=== PATIENT | male | born 1975 | race Caucasian/White ===

== ENCOUNTER 2017-12-18 16:01 | Emergency (ER) | payer BC ==
[2017-12-18] MEDS ORDERED: TYLENOL 325 MG PO STA (16:37)
[2017-12-18] MEDS ORDERED: MOTRIN 600 MG PO ONE (16:38)
--- NOTE | 2017-12-18 16:50 | ERPHSYRPT ---
- History of Present Illness Time Seen by Provider: 12/18/17 16:15 Source: patient, family Exam Limitations: no limitations Patient Subjective Stated Complaint: Pt states "I have had a fever for two days , it was 104 temporal at home." Triage Nursing Assessment: Pt alert and oriented X 3, skin pwd. PT ambylates with an upright steady gait, able to speakin clear full sentences. no apparent respiratory distress. Physician History: 42 y/o white male presents with fever as high as 104 at home for 2 days. pt last used dayquil 6.5 hours ago. he has muscle aches and pains but no other sx. denies chills, denies sore throat, denies neck pain, denies ear pain, denies n/v /d, denies cough, denies cp, denies abd pain, pt denies dysuria and denies flank pain. pt states no other individuals he's come into contact with have similar sx. Timing/Duration: day(s) (2) Fever Severity: moderate Associated Symptoms: muscle aches, No abdominal pain, No chest pain, No confusion, No cough, No diaphoresis, No headache, No nausea/vomiting, No rash, No rhinorrhea, No shortness of breath, No sore throat, No stiff neck, No syncope , No weakness International travel in last 2 weeks: No Allergies/Adverse Reactions: lactose Adverse Reaction (Mild, Verified 12/18/17 16:14) intolerance Home Medications: No Reportable Medications [No Reported Medications] 12/18/17 [History] Hx Tetanus, Diphtheria Vaccination/Date Given: No Hx Influenza Vaccination/Date Given: No Hx Pneumococcal Vaccination/Date Given: No Immunizations Up to Date: Yes - Review of Systems Constitutional: Fever, No Chills, No Fatigue, No Lethargy, No Malaise, No Night Sweats, No Weakness Eyes: No Symptoms, No Discharge, No Eye Pain Ears, Nose, & Throat: No Symptoms, No Ear Pain, No Nose Pain, No Nose Congestion , No Nose Discharge, No Sinus Drainage, No Throat Pain Respiratory: No Symptoms, No Cough, No Dyspnea, No Dyspnea on Exertion (GARRISON), No Stridor, No Wheezing Cardiac: No No Symptoms, No Chest Pain, No Palpitations, No Syncope Abdominal/Gastrointestinal: No Symptoms, No Abdominal Pain, No Nausea, No Vomiting, No Diarrhea, No Constipation Genitourinary Symptoms: No Symptoms, No Dysuria, No Frequency, No Hematuria, No Flank Pain Musculoskeletal: Arthralgias, Myalgias Skin: No Symptoms Neurological: No Symptoms, No Dizziness, No Headache Psychological: No Symptoms Endocrine: No Symptoms Hematologic/Lymphatic: No Symptoms Immunological/Allergic: No Symptoms All Other Systems: Reviewed and Negative - Past Medical History Pertinent Past Medical History: No Neurological History: No Pertinent History ENT History: No Pertinent History Cardiac History: No Pertinent History Respiratory History: No Pertinent History Endocrine Medical History: No Pertinent History Musculoskeletal History: No Pertinent History GI Medical History: No Pertinent History History: No Pertinent History Psycho-Social History: No Pertinent History Male Reproductive Disorders: No Pertinent History - Past Surgical History Past Surgical History: Yes Neuro Surgical History: No Pertinent History Cardiac: No Pertinent History Respiratory: No Pertinent History Gastrointestinal: No Pertinent History Genitourinary: No Pertinent History Musculoskeletal: No Pertinent History Male Surgical History: No Pertinent History Other Surgical History: right knee - Social History Smoking Status: Former smoker Exposure to second hand smoke: No Drug Use: none Patient Lives Alone: No - Nursing Vital Signs Nursing Vital Signs: Initial Vital Signs Temperature 100.7 F 12/18/17 16:09 Pulse Rate 84 12/18/17 16:09 Respiratory Rate 18 12/18/17 16:09 Blood Pressure 146/84 12/18/17 16:09 O2 Sat by Pulse Oximetry 98 12/18/17 16:09 Pain Scale Pain Intensity 4 - Physical Exam General Appearance: no apparent distress, alert, anxiety Eye Exam: PERRL/EOMI, eyes nml inspection ENT Exam: normal ENT inspection, no apparent trauma, hearing grossly normal, TMs normal, pharynx normal, No nasal congestion, No nasal drainage Neck Exam: normal inspection, non-tender, supple, full range of motion, trachea midline, No lymphadenopathy (R), No lymphadenopathy (L), No stiff neck Respiratory Exam: normal breath sounds, chest non-tender, lungs clear, no respiratory distress, no accessory muscle use, No decreased breath sounds, No accessory muscle use, No stridor, No wheezing Cardiovascular/Chest Exam: normal heart sounds, regular rate/rhythm, murmur Gastrointestinal/Abdominal Exam: soft, non tender, no distention, no mass, no guarding, no ecchymosis, no organomegaly, normal bowel sounds Rectal Exam: not done Extremity Exam: non-tender, normal range of motion, normal inspection, normal capillary refill Neurologic Exam: alert, oriented x 3, cooperative, 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, normal mood/affect, nml cerebellar function, nml station & gait Skin Exam: normal color, warm, dry Lymphatic: No adenopathy SpO2 Interpretation: normal SpO2: 98 Oxygen Delivery: Room Air - Course Nursing assessment & vital signs reviewed: Yes Ordered Tests: Active Orders 24 hr Category Date Time Status IV Insertion STAT Care 12/18/17 17:59 Active BLOOD CULTURE Stat Lab 12/18/17 18:05 Received BMP Stat Lab 12/18/17 17:55 Completed CBC W DIFF Stat Lab 12/18/17 17:55 Completed Lactic Acid Stat Lab 12/18/17 17:48 Completed White Screen Stat Lab 12/18/17 18:05 Received UA W/RFX UR CULTURE Stat Lab 12/18/17 19:00 Completed Medication Summary Discontinued Medications Generic Name Dose Route Start Last Admin Trade Name Severoq PRN Reason Stop Dose Admin Acetaminophen 650 mg 12/18/17 16:37 12/18/17 16:59 Tylenol 325 Mg PO 12/18/17 16:38 650 mg STAT STA Administration Acetaminophen Confirm 12/18/17 16:57 Tylenol 325 Mg Administered 12/18/17 16:58 Dose 650 mg .ROUTE .STK-MED ONE Sodium Chloride 1,000 mls @ 999 mls/hr 12/18/17 17:48 12/18/17 18:59 Sodium Chloride 0.9% 1000 Ml IV 12/18/17 18:48 Infused .Q1H1M STA Infusion Sodium Chloride Confirm 12/18/17 17:54 Sodium Chloride 0.9% 1000 Ml Administered 12/18/17 17:55 Dose 1,000 mls @ ud .ROUTE .STK-MED ONE Ibuprofen 600 mg 12/18/17 16:38 12/18/17 16:58 Motrin 600 Mg PO 12/18/17 16:39 600 mg STAT ONE Administration Ibuprofen Confirm 12/18/17 16:57 Motrin 600 Mg Administered 12/18/17 16:58 Dose 600 mg .ROUTE .STK-MED ONE Lab/Rad Data: Laboratory Result Diagrams 12/18/17 17:55 12/18/17 17:55 Laboratory Results 12/18/17 12/18/17 12/18/17 Range/Units 19:00 17:55 17:55 WBC 10.7 H (4.0-10.5) K/mm3 RBC 5.33 (4.1-5.6) M/mm3 Hgb 16.7 (12.5-18.0) gm/dl Hct 47.6 (42-50) % MCV 89.3 (78-100) fl MCH 31.3 (26-32) pg MCHC 35.1 (32-36) g/dl RDW 11.8 (11.5-14.0) % Plt Count 214 (150-450) K/mm3 MPV 9.6 H (6-9.5) fl Gran % 81.7 H (36.0-66.0) % Eos # (Auto) 0 (0-0.5) Absolute Lymphs (auto) 0.77 L (1.0-4.6) Absolute Monos (auto) 1.17 (0.0-1.3) Lymphocytes % 7.2 L (24.0-44.0) % Monocytes % 10.9 (0.0-12.0) % Eosinophils % 0.0 (0.00-5.0) % Basophils % 0.2 (0.0-0.4) % Absolute Granulocytes 8.77 H (1.4-6.9) Basophils # 0.02 (0-0.4) Sodium 137 (137-145) mmol/L Potassium 3.8 (3.5-5.1) mmol/L Chloride 96 L (98-107) mmol/L Carbon Dioxide 30 (22-30) mmol/L Anion Gap 15.2 H (5-15) MEQ/L BUN 14 (9-20) mg/dL Creatinine 0.88 (0.66-1.25) mg/dL Estimated GFR > 60.0 ML/MIN Glucose 103 (74-106) mg/dL Lactic Acid (0.4-2.0) Calcium 9.3 (8.4-10.2) mg/dL Ur Collection Type VOID Urine Color YELLOW (YELLOW) Urine Appearance CLEAR (CLEAR) Urine pH 6.0 (5-6) Ur Specific [place] 1.010 (1.005-1.025) Urine Protein NEGATIVE (Negative) Urine Ketones MODERATE (NEGATIVE) Urine Blood NEGATIVE (0-5) Jamie/ul Urine Nitrite NEGATIVE (NEGATIVE) Urine Bilirubin NEGATIVE (NEGATIVE) Urine Urobilinogen NORMAL (0-1) mg/dL Ur Leukocyte Esterase NEGATIVE (NEGATIVE) Urine Culture Reflexed NO (NO) Urine Glucose NEGATIVE (NEGATIVE) mg/dL Influenza Type A Ag (NEGATIVE) Influenza Type B Ag (NEGATIVE) RSV (PCR) (Negative) Specimen Received 12/18/17 1900 12/18/17 12/18/17 Range/Units 17:48 17:00 WBC (4.0-10.5) K/mm3 RBC (4.1-5.6) M/mm3 Hgb (12.5-18.0) gm/dl Hct (42-50) % MCV (78-100) fl MCH (26-32) pg MCHC (32-36) g/dl RDW (11.5-14.0) % Plt Count (150-450) K/mm3 MPV (6-9.5) fl Gran % (36.0-66.0) % Eos # (Auto) (0-0.5) Absolute Lymphs (auto) (1.0-4.6) Absolute Monos (auto) (0.0-1.3) Lymphocytes % (24.0-44.0) % Monocytes % (0.0-12.0) % Eosinophils % (0.00-5.0) % Basophils % (0.0-0.4) % Absolute Granulocytes (1.4-6.9) Basophils # (0-0.4) Sodium (137-145) mmol/L Potassium (3.5-5.1) mmol/L Chloride (98-107) mmol/L Carbon Dioxide (22-30) mmol/L Anion Gap (5-15) MEQ/L BUN (9-20) mg/dL Creatinine (0.66-1.25) mg/dL Estimated GFR ML/MIN Glucose (74-106) mg/dL Lactic Acid 0.9 (0.4-2.0) Calcium (8.4-10.2) mg/dL Ur Collection Type Urine Color (YELLOW) Urine Appearance (CLEAR) Urine pH (5-6) Ur Specific [place] (1.005-1.025) Urine Protein (Negative) Urine Ketones (NEGATIVE) Urine Blood (0-5) Jamie/ul Urine Nitrite (NEGATIVE) Urine Bilirubin (NEGATIVE) Urine Urobilinogen (0-1) mg/dL Ur Leukocyte Esterase (NEGATIVE) Urine Culture Reflexed (NO) Urine Glucose (NEGATIVE) mg/dL Influenza Type A Ag NEGATIVE (NEGATIVE) Influenza Type B Ag NEGATIVE (NEGATIVE) RSV (PCR) NEGATIVE (Negative) Specimen Received - Progress Progress: improved Progress Note: 12/18/17 17:46 pts temperature increased. will put iv in, give bolus of saline, obtain labs and urine. pt re examined. no new sx. 12/18/17 19:26 pt is feeling better Counseled pt/family regarding: lab results, diagnosis, need for follow-up - Departure Time of Disposition: 19:26 Departure Disposition: Home Clinical Impression: Fever, Viral illness Condition: Stable Critical Care Time: No Referrals: DOCTOR,NO FAMILY [Primary Care Provider] - Additional Instructions: drink plenty of fluids. use tylenol, lukewarm bath/shower and ibuprofen as discussed.
[2017-12-18] MEDS ORDERED: TYLENOL 325 MG ONE (16:57)
[2017-12-18] MEDS ORDERED: MOTRIN 600 MG ONE (16:57)
[2017-12-18 17:34] LABS: INFLUENZA A NEGATIVE (NEGATIVE); INFLUENZA B NEGATIVE (NEGATIVE); RESPIRATORY SYNCTIAL VIRUS NEGATIVE (Negative)
[2017-12-18] MEDS ORDERED: Sodium Chloride 0.9% 1000 ML 1,000 ML IV STA (17:48)
[2017-12-18] MEDS ORDERED: Sodium Chloride 0.9% 1000 ML 1,000 ML ONE (17:54)
[2017-12-18 18:12] LABS: BASOPHIL % 0.2 % (0.0-0.4); Basophil (Absolute #) 0.02 (0-0.4); Eosinophil (Absolute #) 0 (0-0.5); Granulocyte Absolute (ANC) 8.77 (1.4-6.9); Granulocytes % 81.7 % (36.0-66.0); Hematocrit 47.6 % (42-50); Hemoglobin 16.7 gm/dl (12.5-18.0); Lymphocyte (Absolute #) 0.77 (1.0-4.6); Lymphocytes % 7.2 % (24.0-44.0); Mean Cell Volume 89.3 fl (78-100); Mean Corpuscular Hemoglobin 31.3 pg (26-32); Mean Corpuscular Hgb Concent. 35.1 g/dl (32-36); Mean Platelet Volume 9.6 fl (6-9.5); Monocyte (Absolute #) 1.17 (0.0-1.3); Monocytes % 10.9 % (0.0-12.0); Platelet Count 214 K/mm3 (150-450); Red Blood Count 5.33 M/mm3 (4.1-5.6); Red Cell Distribution Width 11.8 % (11.5-14.0); White Blood Count 10.7 K/mm3 (4.0-10.5)
[2017-12-18 18:27] LABS: ANION GAP 15.2 MEQ/L (5-15); BLOOD UREA NITROGEN 14 mg/dL (9-20); CHLORIDE 96 mmol/L (98-107); Calcium 9.3 mg/dL (8.4-10.2); Carbon Dioxide 30 mmol/L (22-30); Creatinine 1 0.88 mg/dL (0.66-1.25); Glucose 103 mg/dL (74-106); Potassium 3.8 mmol/L (3.5-5.1); SODIUM 137 mmol/L (137-145)
[2017-12-18 19:13] LABS: Appearance CLEAR (CLEAR); Bilirubin NEGATIVE (NEGATIVE); Blood NEGATIVE Ery/ul (0-5); Glucose NEGATIVE (NEGATIVE); Ketones MODERATE (NEGATIVE); Leukocyte Esterase NEGATIVE (NEGATIVE); Nitrite NEGATIVE (NEGATIVE); Protein,Urine Dip NEGATIVE (Negative); Urobilinogen NORMAL mg/dL (0-1)
[2017-12-18 19:27] VITALS: O2SAT 98
[2017-12-18 19:48] VITALS: BP 124/60; PULSE 70
== END 2017-12-18 19:48 | disposition home or self-care (01) ==
LOC: ED 16:01
DX: R50.9 Fever, unspecified (principal); B34.9 Viral infection, unspecified
CPT/HCPCS: 36000; 36415; 80048; 81002; 83605; 85025; 86308; 87040; 87631; 96360; 99284; A9270-GY